=== PATIENT | female | born 1980 | race Caucasian/White ===

== ENCOUNTER → 2017-04-07 | Outpatient (CLI) | payer OTHER ==
--- NOTE | 2017-04-07 10:26 | RADIOLOGY REPORT PS360 ---
ANKLE-LT-3 VIEWS HISTORY: LT ANKLE PAIN no injury pain at the top of foot and ankle Patient Age: 36 years: Female Ordering Physician: IRAM WHITMORE MD TECHNIQUE: 3 views left ankle COMPARISON : None FINDINGS Medial lateral posterior malleolus intact. Ankle mortise intact. Dome of talus intact. The visualized Joint spaces are well-maintained including the talonavicular articulation nicely seen on this view No significant soft tissue swelling findings otherwise evident IMPRESSION: Negative right ankle. No significant findings
== END ==
LOC: RAD 09:31
DX: M25.572 Pain in left ankle and joints of left foot (principal)

== ENCOUNTER 2017-04-28 12:12 | Emergency (ER) | payer OTHER ==
[~2017-04-28] VITALS: Ht 170.2 cm; Wt 60.8 kg
[~2017-04-28 12:12] MED LIST: AURALGAN O10 ML/BOTT OT; BISOPROLOL 5MG T5 MG; CLARITIN REDITAB5 M1; DYMISTA1 SPR; FLONASE 50 MCG16 GM; FLUOXETINE10 MG; KEFLEX 500MG.500 MG PO; LEVAQUIN500 MG PO; SINGULAIR10 MG
--- OUTSIDE RECORDS SUMMARY | 2017-04-28 12:38 | External Medical Summary Rpt | CCD ---
Author Author , MIO Hinojosa MIO Address Unknown Phone [email or web address] Care Team Providers Care Clinical Studies Specialist Name Role Phone Carol MCCARTHY, Unavailable Unavailable Carol MCCARTHY [facility] Unavailable [facility], [facility] ENE HOLLEY JR, Unavailable Unavailable ENE HOLLEY JR, ANTHONY J, Unavailable Unavailable JUSTIN CHAMORRO [id number], Unavailable Unavailable [id number] DADA DEL ROSARIO, Unavailable Unavailable DADA DEL ROSARIO A C, WRIGHT, Unavailable Unavailable Shon Hernadnez Purpose Continuity of Care Document - 01-17-2009 through 2016 Problems Code Diagnosis DOS Provider Status 1101 DERMATOPHYT 05-04-2009 [facility] OSIS OF H PODIATRY NAIL 52834 ONYCHIA AND 05-04-2009 [facility] PARONYCHIA H PODIATRY OF TOE 7295 PAIN IN 05-04-2009 [facility] SOFT H PODIATRY TISSUES OF LIMB 32209 PLANTAR 04-27-2009 [facility] FASCIAL H PODIATRY FIBROMATOSI S V242 ROUTINE 04-14-2009 [facility] FOLLOW-UP AND GYNECOLOGY V251 ENCOUNTER 04-14-2009 [facility] INSERT/[facility] PRADIP IU AND CONTRACEPTI GYNECOLOGY VE DEVICE 4619 ACUTE 04-12-2009 A David BRO SINUSITISMD [facility] UNSPECIFIED 462 ACUTE 04-12-2009 Shon BRO PHARYNGITIS [facility] V2509 OTH GENERAL 03-24-2009 [facility] CNSL&ADVICE AND CONTRACEPT GYNECOLOGY MANAGEMENT 26121 UNSPECIFIED 03-17-2009 Shon BLACKMON MD [facility] 64344 CHEST PAIN 03-17-2009 Shon FENTON MD PSC 650 NORMAL 03-01-2009 [facility] DELIV[facility] ANESTHESIA GROUP [facility] 13373 OTHER 03-01-2009 [facility] DE RESPIRATORY RADIOLOGY PROBLEMS AFTER V270 OUTCOME OF 03-01-2009 [facility] DELIVERY OBSTETRICS SINGLE AND LIVEBORN GYNECOLOGY 92330 ABN FETL 02-28-2009 [facility] DEL[facility] W/WO ANTPRTM COND 82599 OTH&UNS CRD 02-28-2009 [facility] COMP L&D DELIV 98961 POST TERM 02-27-2009 [facility] ANTEPARTUM AND COND/COMPLI GYNECOLOGY CATION V2389 SUPERVISION 02-27-2009 [facility] OF OTHER OBSTETRICS HIGH-RISK AND GYNECOLOGY V220 SUPERVISION 02-21-2009 [facility] OF NORMAL OBSTETRICS FIRST AND GYNECOLOGY 55235 DECR 02-20-2009 [facility]S [facility] ANTPRTM COND/COMP Medications Na ND Rx Da Fi Fi Am Da Di Ph RX Ph St me C No te ll ll ou ys ag ar # ys at rm s nt no ma ic us Or Da si cy ia de te s n re d NE 24 10 11 00 10 15 RI 80 RO Ac OM 20 -2 -0 .0 TE 63 DE ti YC 80 9- 5- 00 52 S ve IN 63 20 20 AI -P 11 09 09 D OL 0 PH AN YM AR S YX M IN #3 -H 93 C [address] AC 00 10 11 00 10 1 RI 80 RO Ac ET 09 -2 -0 .0 TE 63 DE ti AM 30 9- 5- 00 51 S ve IN 15 20 20 AI OP 01 09 09 D HE 0 PH AN N- AR S CO M D #3 #3 93 8 TA BL ET EC 45 10 11 00 30 15 RI 80 RO Ac ON 80 -2 -0 .0 TE 63 DE ti AZ 20 9- 5- 00 53 S ve OL 46 20 20 AI E 61 09 09 D NI 1 PH AN TR AR S AT M E #3 1% 93 8 CR EA M 00 10 10 00 24 24 RI 80 WR Ac 09 -1 -2 .0 TE 38 IG ti 51 2- 2- 00 10 HT ve 29 20 20 AI 00 09 09 D AR 6 PH DY AR C M #3 93 8 LO 00 10 10 00 30 30 RI 80 RI Ac RA 78 -0 -2 .0 TE 31 SH ti TA 15 7- 2- 00 79 ER ve DI 07 20 20 AI NE 70 09 09 D RI 1 PH CH 10 AR AR M D MG #3 93 TA 8 BL ET Results Labs Lab Lab Date Result Refere Interp Status Commen Order Detail nces retati t Range on CHLAMYDIA AND GONORRHEA TESTING (05-21-2011 15:12) Chlamyd NEGATIV complet ia 011 E ed trachom 15:12 atis rRNA [Presen ce] in Unspeci fied specime n by Probe & target amplifi cation method Neisser NEGATIV complet ia 011 E ed gonorrh 15:12 oeae rRNA [Presen ce] in Unspeci fied specime n by Probe & target amplifi cation method CHLAMYDIA AND GONORRHEA TESTING (05-21-2011 15:12) COLLECT NA complet OR 011 ed 15:12 ETHNICI WHITE, complet TY 011 NON-HIS ed 15:12 PANIC KIT 08-06-11 complet EXPIRAT 011 ed ION 15:12 DATE SYMPTOM NO complet S 011 ed 15:12 REASON REVISIT complet FOR 011 /ANNUAL ed REQUEST 15:12 FAMILY PLANNIN G VISIT SPECIME FEMALE complet N 011 ENDOCER ed SOURCE 15:12 VICAL PREGNAN NO complet T 011 ed 15:12 CHART NA complet NUMBER 011 ed 15:12 Chlamyd Pending complet ia 011 ed trachom 15:12 atis rRNA [Presen ce] in Unspeci fied specime n by Probe & target amplifi cation method Neisser Pending complet ia 011 ed gonorrh 15:12 oeae rRNA [Presen ce] in Unspeci fied specime n by Probe & target amplifi cation method Procedures Procedure DOS Code Location Performer Comment AVULSION 82217 [facility] RODES, NAIL 9 LTH DADA S PLATE PODIATRY PARTIAL/C OMPLETE SIMPLE 1 INSERTION 47509 [facility] 9 N JR, INTRAUTER OBSTETRIC ENE INE S AND DEVICE GYNECOLOG IUD Y LEVONORGE J7302 [place] H[facility] STREL-RLS 9 N JR, E OBSTETRIC ENE INTRAUTER S AND N GYNECOLOG CNTRACPT Y 52 MG IADNA 64491 A C BRO, Shon BRO MD C CCUS PSC GROUP A QUANTIFIC ATION OTHER 7359 [facility] MANUALLY 9 N N ASSISTED [facility] DELIVERY [facility] OTHER 7309 [facility] ARTIFICIA 9 N N L RUPTURE [facility] NEURAXIAL [address] [place] PEDRO PABLO, LABOR 9 ANESTHESI JUSTIN J ANALG/ANE A GROUP S PLND PSC VAGINAL DELIVERY VAGINAL 41053 [facility] LEYDI DELIVERY 9 N JR, ONLY OBSTETRIC ENE W/POSTPAR S AND ROLO CARE GYNECOLOG Y RADIOLOGI 16320 [facility] David HANKINS 9 RADIOLOGY J EXAMINATI ON CHEST SINGLE VIEW FRONTAL OTHER 731 [facility] SURGICAL 9 N N INDUCTION [facility] [address] [facility] NONSTRESS 9 N N TEST [facility] Encounters Encounter Start End Date Code Location Performer Type Date OFFICE 01768 RIMA PURCELL 9 9 [facility] DADA S ION PODIATRY NEW/ESTAB PATIENT 40 MIN OFFICE 87576 Shon CHEN OUTPATIKATHERINE 9 9 DIEUDONNE Hernandez T VISIT PSC 15 MINUTES OFFICE 59265 [facility] OUTPATIKATHERINE 9 9 N JR, T VISIT OBSTETRIC ENE 10 S AND MINUTES GYNECOLOG Y OFFICE 05536 Shon CHEN OUTPATIEN 9 9 DIEUDONNE Hernandez T VISIT PSC 15 MINUTES HOSPITAL [facility] 9 9 N INPATIENT [facility] OFFICE 77271 [place] OUTPATIEN 9 9 N JR, T VISIT OBSTETRIC ENE 15 S AND MINUTES GYNECOLOG Y OFFICE 45234 [place] [facility] OUTPATIEN 9 9 N JR, T VISIT OBSTETRIC ENE 10 S AND MINUTES GYNECOLOG Y [facility] [place] [address] 9 N OUTPATIEN [facility] OFFICE 04673 [place] LE[facility]DI OUTPATIEN 9 9 N JR, T VISIT OBSTETRIC ENE 10 S AND MINUTES GYNECOLOG Y OFFICE 92726 BILLYWILLAMLazara COONE[place]DI OUTPATIEN 9 9 N JR, T VISIT OBSTETRIC ENE 10 S AND MINUTES GYNECOLOG Y OFFICE 66818 [place] LEYDI OUTPATIEN 9 9 N JR, T VISIT OBSTETRIC ENE 10 S AND MINUTES GYNECOLOG Y OFFICE 10859 BILLYWILLAMLazara COONEYLEYDI OUTPATIEN 9 9 N JR, T VISIT OBSTETRIC ENE 10 S AND MINUTES GYNECOLOG Y
--- OUTSIDE RECORDS SUMMARY | 2017-04-28 12:38 | External Medical Summary Rpt | CCD ---
Author Author , MIO Hinojosa MIO Address Unknown Phone [email or web address] Care Team Providers Care Manager Freelance Name Role Phone Carol MCCARTHY, Unavailable Unavailable Carol MCCARTHY [facility] Unavailable [facility], [facility] ENE HOLLEY JR, Unavailable Unavailable ENE HOLLEY JR, ANTHONY J, Unavailable Unavailable JUSTIN CHAMORRO [id number], Unavailable Unavailable [facility] DADA DEL ROSARIO, Unavailable Unavailable DADA DEL ROSARIO A C, WRIGHT, Unavailable Unavailable Shon Hernandez Purpose Continuity of Care Document - 01-17-2009 through 2016 Problems Code Diagnosis DOS Provider Status 1101 DERMATOPHYT 05-04-2009 [facility] OSIS OF H PODIATRY NAIL 67382 ONYCHIA AND 05-04-2009 [facility] PARONYCHIA H PODIATRY OF TOE 7295 PAIN IN 05-04-2009 [facility] SOFT H PODIATRY TISSUES OF LIMB 97152 PLANTAR 04-27-2009 [facility] FASCIAL H PODIATRY FIBROMATOSI S V242 ROUTINE 04-14-2009 [facility] FOLLOW-UP AND GYNECOLOGY V251 ENCOUNTER 04-14-2009 [facility] INSERT/[facility] PRADIP IU AND CONTRACEPTI GYNECOLOGY VE DEVICE 4619 ACUTE 04-12-2009 A David BRO SINUSITISMD [facility] UNSPECIFIED 462 ACUTE 04-12-2009 Shon BRO PHARYNGITIS [facility] V2509 OTH GENERAL 03-24-2009 [facility] CNSL&ADVICE AND CONTRACEPT GYNECOLOGY MANAGEMENT 30606 UNSPECIFIED 03-17-2009 Shon BRO OTAROMULO MATOS PSC 62093 CHEST PAIN 03-17-2009 Shon FENTON MD PSC 650 NORMAL 03-01-2009 [place] DELIVERY ANESTHESIA GROUP PSC 41049 OTHER 03-01-2009 [facility] [place] RESPIRATORY RADIOLOGY PROBLEMS AFTER V270 OUTCOME OF 03-01-2009 [facility] DELIVERY OBSTETRICS SINGLE AND LIVEBORN GYNECOLOGY 53132 ABN FETL 02-28-2009 [facility] HRT COMMUNITY [facility] DELIV W/WO ANTPRTM COND 92945 OTH&UNS CRD 02-28-2009 [facility] COMP L&D DELIV 25547 POST TERM 02-27-2009 [facility] ANTEPARTUM AND COND/COMPLI GYNECOLOGY CATION V2389 SUPERVISION 02-27-2009 [facility] OF OTHER OBSTETRICS HIGH-RISK AND GYNECOLOGY V220 SUPERVISION 02-21-2009 [facility] OF NORMAL OBSTETRICS FIRST AND GYNECOLOGY 93005 DECR 02-20-2009 [facility]NTS [facility] ANTPRTM COND/COMP Medications Na ND Rx Da [...] MG #3 93 TA 8 BL ET Procedures Procedure DOS Code Location Performer Comment AVULSION 49699 SCOTT DEL ROSARIO, NAIL 9 [facility] DADA S PLATE PODIATRY PARTIAL/C OMPLETE SIMPLE 1 INSERTION 16830 [facility] LEYDI 9 N JR, INTRAUTER OBSTETRIC ENE INE S AND DEVICE GYNECOLOG IUD Y LEVONORGE J7302 [facility] LEYDI STREL-RLS 9 N JR, E OBSTETRIC ENE INTRAUTER S AND N GYNECOLOG CNTRACPT Y 52 MG IADNA 77484 Shon CHEN STREPTOCO 9 DIEUDONNE Hernandez CCUS PSC GROUP A QUANTIFIC ATION OTHER 7359 [facility] MANUALLY 9 N N ASSISTED [facility] OTHER 7309 [facility] ARTIFICIA 9 N N L RUPTURE [facility] NEURAXIAL 26354 MERLYN CHAMORRO, LABOR 9 ANESTHESI JUSTIN J ANALG/ANE A GROUP S PLND PSC VAGINAL DELIVERY RADIOLOGI 40426 [facility] David HANKINS 9 RADIOLOGY J EXAMINATI ON CHEST SINGLE VIEW FRONTAL VAGINAL 44947 [facility] LEYDI DELIVERY 9 N JR, ONLY OBSTETRIC ENE W/POSTPAR S AND ROLO CARE GYNECOLOG Y OTHER 731 [facility] SURGICAL 9 N N INDUCTION [facility] [address] [facility] NONSTRESS 9 N N TEST [facility] Encounters Encounter Start End Date Code Location Performer Type Date OFFICE 92165 REEMA PURCELLAT 9 9 [facility] DADA S ION PODIATRY NEW/ESTAB PATIENT 40 MIN OFFICE 41582 Shon CHEN OUTPATIEN 9 9 DIEUDONNE Hernandez T VISIT PSC 15 MINUTES OFFICE 07880 BILLYLazara HOLLEY OUTPATIEN 9 9 N JR, T VISIT OBSTETRIC ENE 10 S AND MINUTES GYNECOLOG Y OFFICE 17410 Shon CHEN OUTPATIEN 9 9 DIEUDONNE Hernandez T VISIT PSC 15 MINUTES HOSPITAL [facility] - 9 9 N [facility] OFFICE 22138 [place] [facility] OUTPATIEN 9 9 N JR, T VISIT OBSTETRIC ENE 15 S AND MINUTES GYNECOLOG Y OFFICE 24509 [place] OUTPATIEN 9 9 N JR, T VISIT OBSTETRIC ENE 10 S AND MINUTES GYNECOLOG Y HOSPITAL [facility] - 9 9 N [facility] 33589 [place] H[place] OUTPATIEN 9 9 N JR, T VISIT OBSTETRIC ENE 10 S AND MINUTES GYNECOLOG Y OFFICE 79456 [place] OUTPATIEN 9 9 N JR, T VISIT OBSTETRIC ENE 10 S AND MINUTES GYNECOLOG Y OFFICE 06272 [place] OUTPATIEN 9 9 N JR, T VISIT OBSTETRIC ENE 10 S AND MINUTES GYNECOLOG Y OFFICE 92851 [place] HOL[place] OUTPATIEN 9 9 N JR, T VISIT OBSTETRIC ENE 10 S AND MINUTES GYNECOLOG Y
--- OUTSIDE RECORDS SUMMARY | 2017-04-28 12:38 | External Medical Summary Rpt | CCD ---
Author Author , MIO Hinojosa MIO Address Unknown Phone [email or web address] Care Team Providers Care Summer Associate Name Role Phone Carol MCCARTHY, Unavailable Unavailable Carol [facility]CCARTHY [facility] Unavailable [facility], [facility] ENE HOLLEY JR, Unavailable Unavailable ENE HOLLEY JR, ANTHONY J, Unavailable Unavailable JUSTIN CHAMORRO [id number], Unavailable Unavailable [facility] DADA DEL ROSARIO, Unavailable Unavailable DADA DEL ROSARIO A C, WRIGHT, Unavailable Unavailable Shon Hernandez Purpose Continuity of Care Document - 01-17-2009 through 2016 Problems Code Diagnosis DOS Provider Status 1101 DERMATOPHYT 05-04-2009 [facility] OSIS OF H PODIATRY NAIL 95675 ONYCHIA AND 05-04-2009 [facility] PARONYCHIA H PODIATRY OF TOE 7295 PAIN IN 05-04-2009 [facility] SOFT H PODIATRY TISSUES OF LIMB 76181 PLANTAR 04-27-2009 [facility] FASCIAL H PODIATRY FIBROMATOSI S V242 ROUTINE 04-14-2009 [facility] FOLLOW-UP AND GYNECOLOGY V251 ENCOUNTER 04-14-2009 [facility] INSERT/[facility] PRADIP IU AND CONTRACEPTI GYNECOLOGY VE DEVICE 4619 ACUTE 04-12-2009 A David BRO SINUSITISMD PSC UNSPECIFIED 462 ACUTE 04-12-2009 Shon BRO PHARYNGITIS [facility] V2509 OTH GENERAL 03-24-2009 [facility] CNSL&ADVICE AND CONTRACEPT GYNECOLOGY MANAGEMENT 34466 UNSPECIFIED 03-17-2009 Shon BRO OTAROMULO MATOS PSC 74013 CHEST PAIN 03-17-2009 Shon FENTON MD PSC 650 NORMAL 03-01-2009 [place] DELIVERY ANESTHESIA GROUP PSC 49848 OTHER 03-01-2009 [facility] [place] RESPIRATORY RADIOLOGY PROBLEMS AFTER V270 OUTCOME OF 03-01-2009 [facility] DELIVERY OBSTETRICS SINGLE AND LIVEBORN GYNECOLOGY 05959 ABN FETL 02-28-2009 [facility] HRT COMM[facility]ITY [facility] DELIV W/WO ANTPRTM COND 85984 OTH&UNS CRD 02-28-2009 [facility] COMP L&D DELIV 71076 POST TERM 02-27-2009 [facility] ANTEPARTUM AND COND/COMPLI GYNECOLOGY CATION V2389 SUPERVISION 02-27-2009 [facility] OF OTHER OBSTETRICS HIGH-RISK AND GYNECOLOGY V220 SUPERVISION 02-21-2009 [facility] OF NORMAL OBSTETRICS FIRST AND GYNECOLOGY 62600 DECR 02-20-2009 [facility] M[facility]NTS [facility] ANTPRTM COND/COMP Medications Na ND [...] Procedure DOS Code Location Performer Comment AVULSION 42749 SCOTT DEL ROSARIO, NAIL 9 [facility] DADA S PLATE PODIATRY PARTIAL/C OMPLETE SIMPLE 1 INSERTION 19048 [facility] LEYDI 9 N JR, INTRAUTER OBSTETRIC ENE INE S AND DEVICE GYNECOLOG IUD Y LEVONORGE J7302 [facility] LEYDI STREL-RLS 9 N JR, E OBSTETRIC ENE INTRAUTER S AND N GYNECOLOG CNTRACPT Y 52 MG IADNA 25384 Shon CHEN STREPTOCO 9 DIEUDONNE Hernandez CCUS PSC GROUP A QUANTIFIC ATION OTHER 7359 [facility] MANUALLY 9 N N ASSISTED [facility] OTHER 7309 [facility] ARTIFICIA 9 N N L RUPTURE [facility] NEURAXIAL 93097 MERLYN CHAMORRO, LABOR 9 ANESTHESI JUSTIN J ANALG/ANE A GROUP S PLND PSC VAGINAL DELIVERY RADIOLOGI 54614 [facility] David HANKINS 9 RADIOLOGY J EXAMINATI ON CHEST SINGLE VIEW FRONTAL VAGINAL 96727 [facility] LEYDI DELIVERY 9 N JR, ONLY OBSTETRIC ENE W/POSTPAR S AND ROLO CARE GYNECOLOG Y OTHER 731 [facility] SURGICAL 9 N N INDUCTION [facility] 55002 [facility] NONSTRESS 9 N N TEST [facility] Encounters Encounter Start End Date Code Location Performer Type Date OFFICE 38862 REEMA PURCELLAT 9 9 [facility] DADA S ION PODIATRY NEW/ESTAB PATIENT 40 MIN OFFICE 09438 Shon CHEN OUTPATIEN 9 9 DIEUDONNE Hernandez T VISIT PSC 15 MINUTES OFFICE 00125 BILLYLazara HOLLEY OUTPATIEN 9 9 N JR, T VISIT OBSTETRIC ENE 10 S AND MINUTES GYNECOLOG Y OFFICE 73545 Shon CHEN OUTPATIEN 9 9 DIEUDONNE Hernandez T VISIT PSC 15 MINUTES HOSPITAL [facility] - 9 9 N [facility] OFFICE 56144 [place] HOL[place] OUTPATIEN 9 9 N JR, T VISIT OBSTETRIC ENE 15 S AND MINUTES GYNECOLOG Y OFFICE 18464 [place] H[place] OUTPATIEN 9 9 N JR, T VISIT OBSTETRIC ENE 10 S AND MINUTES GYNECOLOG Y HOSPITAL [facility] - 9 9 N [facility] OFF[facility] 12240 [place] HOLLEY OUTPATIEN 9 9 N JR, T VISIT OBSTETRIC ENE 10 S AND MINUTES GYNECOLOG Y OFFICE 39880 [place] H[place] OUTPATIEN 9 9 N JR, T VISIT OBSTETRIC ENE 10 S AND MINUTES GYNECOLOG Y OFFICE 78604 [place] HOL[place] OUTPATIEN 9 9 N JR, T VISIT OBSTETRIC ENE 10 S AND MINUTES GYNECOLOG Y OFFICE 38745 [place] HOL[place] OUTPATIEN 9 9 N JR, T VISIT OBSTETRIC ENE 10 S AND MINUTES GYNECOLOG Y
--- OUTSIDE RECORDS SUMMARY | 2017-04-28 12:38 | External Medical Summary Rpt | CCD ---
Author Author , MIO Hinojosa MIO Address Unknown Phone [email or web address] Care Team Providers Care Sales Representative Livestock Name Role Phone Carol MCCARTHY, Unavailable Unavailable Carol MCCARTHY [facility] Unavailable [facility], [facility] ENE HOLLEY JR, Unavailable Unavailable ENE [...] 05-04-2009 [facility] OSIS OF H PODIATRY NAIL 89206 ONYCHIA AND 05-04-2009 [facility] PARONYCHIA H PODIATRY OF TOE 7295 PAIN IN 05-04-2009 [facility] SOFT H PODIATRY TISSUES OF LIMB 68403 PLANTAR 04-27-2009 [facility] FASCIAL H PODIATRY FIBROMATOSI S V242 ROUTINE 04-14-2009 [facility] FOLLOW-UP AND GYNECOLOGY V251 ENCOUNTER 04-14-2009 [facility] INSERT/[facility] PRADIP IU AND CONTRACEPTI GYNECOLOGY VE DEVICE 4619 ACUTE 04-12-2009 A David BRO SINUSITISMD [facility] UNSPECIFIED 462 ACUTE 04-12-2009 Shon BRO PHARYNGITIS [facility] V2509 OTH GENERAL 03-24-2009 [facility] CNSL&ADVICE AND CONTRACEPT GYNECOLOGY MANAGEMENT 66018 UNSPECIFIED 03-17-2009 Shon BLACKMON MD [facility] 91589 CHEST PAIN 03-17-2009 Shon FENTON MD PSC 650 NORMAL 03-01-2009 [facility] DELIVERY ANESTHESIA GROUP [facility] 80741 OTHER 03-01-2009 [facility] ID RESPIRATORY RADIOLOGY PROBLEMS AFTER V270 OUTCOME OF 03-01-2009 [facility] DELIVERY OBSTETRICS SINGLE AND LIVEBORN GYNECOLOGY 00038 ABN FETL 02-28-2009 [facility] HRT [facility] DELIV W/WO ANTPRTM COND 87066 OTH&UNS CRD 02-28-2009 [facility] W[facility]O [facility] COMP L&D DELIV 81223 POST TERM 02-27-2009 [facility] ANTEPARTUM AND COND/COMPLI GYNECOLOGY CATION V2389 SUPERVISION 02-27-2009 [facility] OF OTHER OBSTETRICS HIGH-RISK AND GYNECOLOGY V220 SUPERVISION 02-21-2009 [facility] OF NORMAL OBSTETRICS FIRST AND GYNECOLOGY 01451 DECR 02-20-2009 [facility]NTS [facility] ANTPRTM COND/COMP Medications Na ND Rx [...] Procedure DOS Code Location Performer Comment AVULSION 99151 COMMONWEA RODES, NAIL 9 [facility] DADA S PLATE PODIATRY PARTIAL/C OMPLETE SIMPLE 1 INSERTION 65307 [place] H[facility] 9 N JR, INTRAUTER OBSTETRIC ENE INE S AND DEVICE GYNECOLOG IUD Y LEVONORGE J7302 [place] HOLLEY STREL-RLS 9 N JR, E OBSTETRIC ENE INTRAUTER S AND N GYNECOLOG CNTRACPT Y 52 MG IADNA 21096 A C BRO, Shon BRO MD C CCUS PSC GROUP A QUANTIFIC ATION OTHER 7359 [facility] MANUALLY 9 N N ASSISTED [facility] DELIVERY [facility] OTHER 7309 [facility] ARTIFICIA 9 N N L RUPTURE [facility] NEURAXIAL [address]368 [place] PEDRO PABLO, LABOR 9 ANESTHESI JUSTIN J ANALG/ANE A GROUP S PLND PSC VAGINAL DELIVERY VAGINAL 14517 [facility] LEYDI DELIVERY 9 N JR, ONLY OBSTETRIC ENE W/POSTPAR S AND ROLO CARE GYNECOLOG Y RADIOLOGI 79507 [facility] David HANKINS 9 RADIOLOGY J EXAMINATI ON CHEST SINGLE VIEW FRONTAL OTHER 731 [facility] SURGICAL 9 N N INDUCTION [facility] 29452 [facility] NONSTRESS 9 N N TEST [facility] Encounters Encounter Start End Date Code Location Performer Type Date OFFICE 41966 RIMA PURCELL 9 9 [facility] DADA S ION PODIATRY NEW/ESTAB PATIENT 40 MIN OFFICE 72773 Shon CHEN OUTPATIKATHERINE 9 9 DIEUDONNE Hernandez T VISIT PSC 15 MINUTES OFFICE 68953 [facility] OUTPATIKATHERINE 9 9 N JR, T VISIT OBSTETRIC ENE 10 S AND MINUTES GYNECOLOG Y OFFICE 75753 Shon CHEN OUTPATIEN 9 9 DIEUDONNE Hernandez T VISIT PSC 15 MINUTES HOSPITAL [facility] 9 9 N INPATIENT [facility] OFFICE 64852 [place] HOLLEY OUTPATIEN 9 9 N JR, T VISIT OBSTETRIC ENE 15 S AND MINUTES GYNECOLOG Y OFFICE 79255 [place] HOL[place] OUTPATIEN 9 9 N JR, T VISIT OBSTETRIC ENE 10 S AND MINUTES GYNECOLOG Y HOSPITAL [place] [address] 9 N OUTPATIEN [facility] OFFICE 97254 [place] LEYDI OUTPATIEN 9 9 N JR, T VISIT OBSTETRIC ENE 10 S AND MINUTES GYNECOLOG Y OFFICE 73809 [place] OUTPATIEN 9 9 N JR, T VISIT OBSTETRIC ENE 10 S AND MINUTES GYNECOLOG Y OFFICE 79960 [place] LEYDI OUTPATIEN 9 9 N JR, T VISIT OBSTETRIC ENE 10 S AND MINUTES GYNECOLOG Y OFFICE 33101 [place] [facility] OUTPATIEN 9 9 N JR, T VISIT OBSTETRIC ENE 10 S AND MINUTES GYNECOLOG Y
--- OUTSIDE RECORDS SUMMARY | 2017-04-28 12:39 | External Medical Summary Rpt | CCD ---
Demographics Preferred Language Faroese Marital Status Unknown Religion Affiliation Unknown Race Unknown Ethnic Group Unknown Author Author , MIO LIEBERMAN Address Unknown Phone Immunization No patient found.
--- OUTSIDE RECORDS SUMMARY | 2017-04-28 12:39 | External Medical Summary Rpt ---
Author Author HUNTERMASSIEL Ramos, [employer] Organization [employer] Address Unknown Phone Unavailable Results Chlamydia/GC Amplification Observa Value Referen Units Interpr Notes Date tion ce etation Range Chlamyd Negativ Negativ No No No Feb 26 ia e e informa informa informa 2017 trachom tion in tion in tion in 9:58 AM atis source source source rRNA data data data [Presen ce] in Unspeci fied specime n by Probe & target amplifi cation method Neisser Negativ Negativ No No Perform Feb 26 ia e e informa informa ed at: 2017 gonorrh tion in tion in =G - 9:58 AM oeae source source [facility] rRNA data data [Presen Librado ce] in [id number] Unspeci [place] fied [place], specime [place], [place] Probe & target [id number] 38Lab amplifi Directo cation r: method Elizabeth Zambrano MD, Phone: [phone] Comprehensive metabolic 2000 panel in Serum or Plasma Observa Value Referen Units Interpr Notes Date tion ce etation Range Albumin/G 1.1 - 1.8 No Normal No Clifford 2 lobulin informati informati 2017 8:14 [Mass on in on in AM ratio] in source source Serum or data data Plasma Albumin 3.4 - 5.0 gm/dL Normal No Clifford 2 [Mass/vol informati 2017 8:14 ume] in on in AM Serum or source Plasma data Alkaline 46 - 116 U/L Normal No Clifford 2 phosphata informati 2017 8:14 se on in AM [Enzymati source c data activity/ volume] in Serum or Plasma Bilirubin 0.2 - 1.0 mg/dL Normal No Clifford 2 .total informati 2017 8:14 [Mass/vol on in AM ume] in source Serum or data Plasma Urea 7 - 18 mg/dL Normal No Clifford 2 nitrogen informati 2017 8:14 [Mass/vol on in AM ume] in source Serum or data Plasma Calcium 8.5 - mg/dL Normal No Clifford 2 [Mass/vol 10.1 informati 2017 8:14 ume] in on in AM Serum or source Plasma data Chloride 98 - 107 mmoL/L Normal No Clifford 2 [Moles/vo informati 2017 8:14 lume] in on in AM Serum or source Plasma data Carbon 21.0 - mmoL/L Normal No Clifford 2 dioxide, 32.0 informati 2017 8:14 total on in AM [Moles/vo source lume] in data Serum or Plasma Creatinin 0.55 - mg/dL Normal No Clifford 2 e 1.02 informati 2017 8:14 [Mass/vol on in AM ume] in source Serum or data Plasma Estimated 59- ML/MIN No REFERENCE Clifford 2 informati RANGE: 2017 8:14 glomerula on in >60 AM r source ML/MIN/1. filtratio data 73 SQUARE n rate METERSIf (GF this patient is -A merican, then multiply theresult by 1.210. Globulin 1.3 - 3.2 gm/dL High No Clifford 2 [Mass/vol informati 2017 8:14 ume] in on in AM Serum source data Glucose 74 - 106 mg/dL Normal No Clifford 2 [Mass/vol informati 2017 8:14 ume] in on in AM Serum or source Plasma data Potassium 3.5 - 5.1 mmoL/L Normal No Clifford 2 informati 2017 8:14 [Moles/vo on in AM lume] in source Serum or data Plasma Sodium 136 - 145 mmoL/L Normal No Clifford 2 [Moles/vo informati 2017 8:14 lume] in on in AM Serum or source Plasma data Aspartate 15 - 37 U/L Low No Clifford 2 informati 2017 8:14 aminotran on in AM sferase source [Enzymati data c activity/ volume] in Serum or Plasma Alanine 12 - 78 U/L Normal No Clifford 2 aminotran informati 2016 8:14 sferase on in AM [Enzymati source c data activity/ volume] in Serum or Plasma Protein 6.4 - 8.2 gm/dL Normal No Clifford 2 [Mass/vol informati 2017 8:14 ume] in on in AM Serum or source Plasma data Lipid 1996 panel in Serum or Plasma Observa Value Referen Units Interpr Notes Date tion ce etation Range Cholester < 200 mg/dL No No Clifford 2 ol informati informati 2017 8:14 [Moles/vo on in on in AM lume] in source source Unspecifi data data ed specimen Cholester 40 - 60 MG/DL Normal No Dec 2 ol in HDL informati 2016 8:14 on in AM [Mass/vol source ume] in data Serum or Plasma Cholester 0 - 130 mg/dL Normal No Dec 2 ol in LDL informati 2016 8:14 on in AM [Mass/vol source ume] in data Serum or Plasma by calculati on Triglycer 30 - 200 mg/dL Normal No Dec 2 lynnette informati 2016 8:14 [Moles/vo on in AM lume] in source Serum or data Plasma Cholester 0 - 40 No Normal No Clifford 2 ol in informati informati 2017 8:14 VLDL on in on in AM [Mass/vol source source ume] in data data Serum or Plasma Thyrotropin [Units/volume] in Serum or Plasma Observa Value Referen Units Interpr Notes Date tion ce etation Range Thyrotrop 0.358 - uIU/ml Normal No Dec 2 in 3.740 informati 2016 8:14 [Units/vo on in AM lume] in source Serum or data Plasma CBC W Auto Differential panel in Blood Observa Value Referen Units Interpr Notes Date tion ce etation Range Basophils 0 - 0.2 K/MM3 Normal No Dec 2 informati 2016 8:14 [#/volume on in AM ] in source Blood by data Automated count Basophils 0.1 - 2.0 % Normal No Clifford 2 /100 informati 2016 8:14 leukocyte on in AM s in source Blood by data Automated count Eosinophi 0.0 - 0.4 K/mm3 Normal No Dec 2 ls informati 2016 8:14 [#/volume on in AM ] in source Blood by data Automated count Eosinophi 0.1 - % Normal No Dec 2 ls/100 12.0 informati 2016 8:14 leukocyte on in AM s in source Blood by data Automated count Granulocy 1.8 - 7.8 K/mm3 Normal No Dec 2 renea informati 2016 8:14 [#/volume on in AM ] in source Blood by data Automated count Granulocy 37.0 - % Normal No Dec 2 renea/100 80.0 informati 2016 8:14 leukocyte on in AM s in source Blood by data Automated count Hematocri 37.0 - % Normal No Dec 2 t [Volume 47.0 informati 2017 8:14 on in AM Fraction] source of Blood data Hemoglobi 12.2 - g/dL Normal No Clifford 2 n 16.2 informati 2017 8:14 [Mass/vol on in AM ume] in source Blood data Lymphocyt 0.7 - 4.5 K/mm3 Normal No Clifford 2 es informati 2017 8:14 [#/volume on in AM ] in source Unspecifi data ed specimen by Automated count Lymphocyt 10 - 50.0 % Normal No Clifford 2 es informati 2017 8:14 [#/volume on in AM ] in source Unspecifi data ed specimen by Automated count Erythrocy 27 - 31.2 pg High No Dec 2 te mean informati 2017 8:14 corpuscul on in AM ar source hemoglobi data n [Entitic mass] Erythrocy 31.8 - g/dl Normal No Dec 2 te mean 35.4 informati 2016 8:14 corpuscul on in AM ar source hemoglobi data n concentra tion [Mass/vol ume] by Automated count Erythrocy 82.2 - fl Normal No Dec 2 te mean 97.8 informati 2017 8:14 corpuscul on in AM ar volume source [Entitic data volume] by Automated count Monocytes 0.1 - 1.0 K/mm3 Normal No Clifford 2 informati 2017 8:14 [#/volume on in AM ] in source Blood by data Automated count Monocytes 1.7 - 9.3 % Normal No Clifford 2 /100 informati 2017 8:14 leukocyte on in AM s in source Blood by data Automated count Platelet 7.4 - fl Low No Dec 2 mean 10.4 informati 2017 8:14 volume on in AM [Entitic source volume] data in Blood by Automated count Platelets 142 - 424 K/mm3 Normal No Clifford 2 informati 2017 8:14 [#/volume on in AM ] in source Blood data Erythrocy 4.2 - 5.4 M/mm3 Normal No Clifford 2 renea informati 2017 8:14 [#/volume on in AM ] in source Amniotic data fluid Erythrocy 11.5 - % Normal No Clifford 2 te 17.5 informati 2017 8:14 distribut on in AM ion width source [Entitic data volume] by Automated count Leukocyte 4.8 - K/MM3 Normal No Clifford 2 s 10.8 informati 2017 8:14 [#/volume on in AM ] in source Blood data CHLAMYDIA AND GONORRHEA TESTING Observa Value Referen Units Interpr Notes Date tion ce etation Range COLLECT NA No No No No May 21 OR informa informa informa informa 2010 tion in tion in tion in tion in 3:12 PM source source source source data data data data ETHNICI WHITE, No No No No May 21 TY NON-HIS informa informa informa informa 2010 PANIC tion in tion in tion in tion in 3:12 PM source source source source data data data data KIT 08-06-11 No No No No May 21 EXPIRAT informa informa informa informa 2011 ION tion in tion in tion in tion in 3:12 PM DATE source source source source data data data data SYMPTOM NO No No No No May 21 S informa informa informa informa 2010 tion in tion in tion in tion in 3:12 PM source source source source data data data data REASON REVISIT No No No No May 21 FOR /ANNUAL informa informa informa informa 2011 REQUEST FAMILY tion in tion in tion in tion in 3:12 PM source source source source PLANNIN data data data data G VISIT SPECIME FEMALE No No No No May 21 N ENDOCER informa informa informa informa 2011 SOURCE VICAL tion in tion in tion in tion in 3:12 PM source source source source data data data data PREGNAN NO No No No No May 21 T informa informa informa informa 2010 tion in tion in tion in tion in 3:12 PM source source source source data data data data CHART NA No No No No May 21 NUMBER informa informa informa informa 2010 tion in tion in tion in tion in 3:12 PM source source source source data data data data Chlamyd NEGATIV No No No NEGATIV May 21 ia E informa informa informa E 2011 trachom tion in tion in tion in RESULT= 3:12 PM atis source source source WITHIN rRNA data data data NORMAL [Presen ce] in LIMITSP Unspeci OSITIVE fied specime RESULT= n by Probe & ABNORMA target LEQUIVO SLIME amplifi RESULT= cation method INDETER MINATEU NSATISF ACTORY RESULT= INVALID Neisser NEGATIV No No No NEGATIV May 21 ia E informa informa informa E 2011 gonorrh tion in tion in tion in RESULT= 3:12 PM oeae source source source WITHIN rRNA data data data NORMAL [Presen ce] in LIMITSP Unspeci OSITIVE fied specime RESULT= n by Probe & ABNORMA target LEQUIVO SLIME amplifi RESULT= cation method INDETER MINATEU NSATISF ACTORY RESULT= INVALID EFFECTI VE NOVEMBE R [id number]: THE APTIMA COMBO 2 NUCLEIC ACIDAMP LIFICAT ION ASSAY IS NOT INTENDE D FOR THE EVALUAT ION OFSUSPE CTED SEXUAL ABUSE OR FOR OTHER MEDICO- LEGAL INDICAT IONS.FA LSE POSITIV E RESULTS ARE POSSIBL E.\.br\ This report contain s patient informa tion that must be protect ed in accorda nce with the Health Insuran ce Portabi lity and Account ability Act. CHLAMYDIA AND GONORRHEA TESTING Observa Value Referen Units Interpr Notes Date tion ce etation Range COLLECT NA No No No No May 21 OR informa informa informa informa 2010 tion in tion in tion in tion in 3:12 PM source source source source data data data data ETHNICI WHITE, No No No No May 21 TY NON-HIS informa informa informa informa 2010 PANIC tion in tion in tion in tion in 3:12 PM source source source source data data data data KIT 1-31-12 No No No No May 21 EXPIRAT informa informa informa informa 2011 ION tion in tion in tion in tion in 3:12 PM DATE source source source source data data data data SYMPTOM NO No No No No May 21 S informa informa informa informa 2010 tion in tion in tion in tion in 3:12 PM source source source source data data data data REASON REVISIT No No No No May 21 FOR /ANNUAL informa informa informa informa 2010 REQUEST FAMILY tion in tion in tion in tion in 3:12 PM source source source source PLANNIN data data data data G VISIT SPECIME FEMALE No No No No May 21 N ENDOCER informa informa informa informa 2010 SOURCE VICAL tion in tion in tion in tion in 3:12 PM source source source source data data data data PREGNAN NO No No No No May 21 T informa informa informa informa 2011 tion in tion in tion in tion in 3:12 PM source source source source data data data data CHART NA No No No No May 21 NUMBER informa informa informa informa 2011 tion in tion in tion in tion in 3:12 PM source source source source data data data data Chlamyd Pending No No No No May 21 ia informa informa informa informa 2011 trachom tion in tion in tion in tion in 3:12 PM atis source source source source rRNA data data data data [Presen ce] in Unspeci fied specime n by Probe & target amplifi cation method Neisser Pending No No No \.br\May 21 ia informa informa informa is 2011 gonorrh tion in tion in tion in report 3:12 PM oeae source source source contain rRNA data data data s [Presen patient ce] in Unspeci informa fied tion specime that n by must be Probe & target protect ed in amplifi accorda cation nce method with the Health Insuran ce Portabi lity and Account ability Act.
--- OUTSIDE RECORDS SUMMARY | 2017-04-28 12:39 | External Medical Summary Rpt ---
[...] rRNA data data [Presen Librado ce] in [id number] Unspeci [place] fied [place], specime [place]ibr[place], [place] Probe & target [id number] 38Lab amplifi Directo cation r: method Elizabeth Zambrano MD, Phone: [phone] Comprehensive metabolic 2000 panel in Serum or [...]
--- OUTSIDE RECORDS SUMMARY | 2017-04-28 12:39 | External Medical Summary Rpt | CCD ---
Demographics Preferred Language Welsh Marital Status Unknown Yazidi Affiliation Unknown Race Unknown Ethnic Group Unknown Author Author , [facility] Address Unknown Phone Immunization No patient found.
[2017-04-28 12:41] LABS: HEMOGLOBIN 14.2 g/dL (12.2-16.2); LYMPH # 1.9 K/mm3 (0.7-4.5); LYMPH % 45.8 % (10-50.0)
--- NOTE | 2017-04-28 12:54 | Emergency Room Report ---
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 N Clinical Suspician of Infection? N Mental Status: 1 - Regular (Normal Baseline) Sepsis Risk:Low Sepsis Risk Have you (or family members/close friends) recently traveled outside the [place]? N If Yes, where/when: Have you had exposure to infectious disease within the past month? TB? Other? Specify: Patient forgot to take her Bisoprolol last night, and drank energy drink called "Spark", which contains 120 mg of caffeine. She acutely had an episode of palpitations, and felt unwell. She at breakfast today. She states she has a hx of tachycardia, followed by Dr. Anguiano. She has had her TSH checked in the recent past and was normal per her recollection. She has no chest pain. No syncope. Has ear fullness, worse when changing positions. Takes allergy medicine for this. No complaints of palpitations on MD arrival in room. Has been fatigued lately with some waeight gain over the past year; no skin or hair changes. ALLERGIES Coded Allergies: No Known Drug Allergies (04/28/17) Home Medications Reported Medications Montelukast Sodium (Singulair) Loratadine (Claritin) AZELASTINE/FLUTICASONE (Dymista Nasal [place]) BISOPROLOL FUMARATE (Bisoprolol 5MG) Fluoxetine Hcl (Fluoxetine) History Medical History General Angina: No CO: No Hypertension? No Hyperlipidemia? No CHF? No DVT? No PE? No COPD? No Asthma? No Anemia? No GERD? Yes Gastric ulcers? No GI Bleed? No Hernia? No Thyroid Problems? No Hypothyroidism? No CVA? No Seizures? No Diabetes? No UTI? No Stones? No GB Disease: No Hepatitis? No Cataracts? No Glaucoma? No MRSA? No TB? No Cancer? 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 Cardiovascular see HPI Physical Exam Vital Signs Vital Signs Date Time Temp Pulse Resp B/P Pulse O2 O2 Flow FiO2 Ox Delivery Rate 04/28 1355 70 20 127/78 98 04/28 1213 97.0 100 18 127/78 100 General Appearance normal appearance, WD/WN, no apparent distress Eye Exam - bilateral eye normal exam Ear, Nose, Throat abnormal TM (R), abnormal TM (L) (cloudy B;minor irrit R canal ), OP wet; nares patent, no congestion Neck normal inspection, non-tender, supple (nl thyroid) Respiratory Status Yes: trachea midline, chest symmetrical, non tender chest. No: respiratory distress, tender on palpation, use of accessory muscles, pain on inspiration, pain on expiration, productive cough, non productive cough. Lung Sounds bilateral: normal breath sounds, lungs clear. Cardiovascular normal exam, regular rate/rhythm, no peripheral edema, no gallop, no JVD, no murmur, no rub, normal peripheral pulses (HR 80), JVD (HR 80's) Peripheral Pulses Pulses normal Yes Gastrointestinal normal bowel sounds, normal exam, non tender, soft, no organomegaly, no pulsatile mass, no guarding, no rebound Extremities normal range of motion Strength 5 Upper Ext (L), 5 Upper Ext (R), 5 Lower Ext (L), 5 Lower Ext (R) Neurologic alert (nonfocal;speech clear;ambulato) Glascow Coma Scale Glascow Coma Scale Response Value EYE response: 4 Spontaneously 4 MOTOR response: 6 OBEYS 6 VERBAL response: 5 Oriented & Converses 5 Total 15 Skin intact, normal color, warm/dry Medical Decision Making LABS/Meds/Orders Pt receiving controlled substance in ED? No Results/Orders Laboratory Tests 04/28/17 1230: Sodium 139, Potassium 3.2 L, Chloride 102, Carbon Dioxide 30, BUN 17, Creatinine 0.6, Estimated Creat Clear 122, Estimated GFR (MDRD) 112, Glucose 95, Calcium 8.6, Total Bilirubin 0.4, AST 20, ALT 21, Alkaline Phosphatase 83, Creatine Kinase 99, CK-MB (CK-2) Rel Index 1.0, CK and CKMB Interp 1.0, Troponin I < 0.02, Total Protein 7.9, Albumin 4.1, Globulin 3.8 H, Albumin/Globulin Ratio 1.1, TSH 5.23 H, Free T4 Index 6.4, Thyroxine (T4) 7.8, T3 Uptake 33, WBC 4.1 L, RBC 4.73, Hgb 14.2, Hct 42.9, MCV 90.6, RDW 11.9, Plt Count 158, MPV 9.2 , Gran % 45.7, Gran # 1.9, Lymphocytes % 45.8, Monocytes % 6.2, Eosinophils % 2.0, Basophils % 0.4, Lymphocytes # 1.9, Monocytes # 0.3, Eosinophils # 0.1, Basophils # 0.0, PUBS MCHC 33.1, MCH 30.0 Current Medication Orders Sig/Zulay Start time Last Medication Dose Route Stop Time Status Admin Sodium Chloride 10 ML PRN PRN 04/28 1230 AC IV 04/29 1218 Orders Procedure Date/time Status ELECTROCARDIOGRAM REQUEST 04/28 1219 Active CHEST(2 VIEWS-NOT PORTABLE) 04/28 1219 Active IV SALINE LOCK 04/28 1219 Active THYROID PANEL 2 (WITH TSH) 04/28 1219 Complete CBC WITH AUTO DIFF 04/28 1219 Complete CARDIAC ENZYMES 04/28 1219 Complete CHEM 12 PROFILE 04/28 1219 Complete 12 LEAD EKG-[facility] (INITIAL) 04/28 UNK Active CM/EKG CM/EKG EKG rate, NSR, rhythm, no evid. of ischemic chgs, no ectopy, normal QRS, normal NH, normal EKG (NSR 88) XRAY/CT/US XRAY/CT/US XRAY chest XR interpretation by reviewed by me Xray Results normal/NAD, no infiltrates, normal heart size, no hematoma seen, normal lung inflation spencer Departure Departure Time of Disposition 1401 Disposition DC Home or Self Care(routine) Clinical Impression Primary Impression: Palpitations Secondary Impressions: Elevated TSH Condition STABLE Referrals Adonay MATOS,Carol Erwin (PCP/Family) Patient Instructions DI for Palpitations Additional Instructions See Dr. Urias regarding elevated TSH. This may be related to your palpitations, fatigue, and weight gaine. See Dr. Anguiano regarding Bisoprolol and history of tachycardia, as he may wish to do further testing outpatient as well. continue current medications and avoid caffeine. Discharge Counseling Counseled pt/family regarding diagnosis, test results, medications/RX, home care, follow up needs ED Critical Care Critical Care No at [id number]
[2017-04-28 13:03] LABS: BUN 17 mg/dL (7-18); FREE THYROXIN INDEX 6.4 ug/dl (5.93-13.13)
[2017-04-28 13:09] LABS: GFR (ESTIMATED) 112 ML/MIN (59-)
[2017-04-28 14:12] VITALS: BP 127/78
--- NOTE | 2017-04-28 21:22 | RADIOLOGY REPORT PS360 ---
CHEST(2 VIEWS-NOT PORTABLE) Ordering physician: Radha Garcia MD Age: 36 years Female INDICATION: chest symptomsHEART PALPITATIONS heart palpitations PROCEDURE: CHEST(2 VIEWS-NOT PORTABLE) FINDINGS: March 2012 CXR as comparison. Lungs are mildly hyperexpanded on this study but clear with nothing definitely acute. The mild accentuation of markings at the infrahilar region on right measuring suspect reflects an early mild chronic changes and accentuated by today's technique. Nipple shadow is seen on the left more so than right base unchanged since prior study. Heart, dolores and mediastinal structures stable. No pneumothorax. No pleural effusion. Heart normal size. Normal pulmonary vascularity. Hilar and mediastinal structures appear satisfactory. Chest wall unremarkable. T-spine intact. IMPRESSION ----- Stable chest nothing definitely acute Mild hyperexpansion COPDWith suggestion early mild chronic changes
== END 2017-04-28 14:12 | disposition home or self-care (01) ==
LOC: ER 12:12
PROVIDERS: Emergency Medicine
DX: R00.2 Palpitations (principal); K21.9 Gastro-esophageal reflux disease without esophagitis; R94.6 Abnormal results of thyroid function studies

== ENCOUNTER → 2017-05-01 | Outpatient (CLI) | payer OTHER ==
[~2017-05-01] MED LIST changes: +LEVOTHYROXIN0.025 MG
--- NOTE | 2017-05-01 15:56 | RADIOLOGY REPORT PS360 ---
US THYROID HISTORY: HYPOTHYROIDISM, thyromegaly ORDERING PHYSICIAN: Carol Urias MD PATIENT AGE: 36 years COMPARISON: 02/23/2015 FINDINGS: Right lobe: 4.1 x 1.2 x 1.5 cm Left lobe: 4 x 1.1 x 0.7 cm Isthmus: 3 mm Homogeneous echogenicity is present. No thyroid nodules IMPRESSION: Unremarkable thyroid ultrasound
== END ==
LOC: RAD 09:57
DX: E03.9 Hypothyroidism, unspecified (principal)

== ENCOUNTER → 2017-06-12 | Outpatient (CLI) | payer OTHER ==
[2017-06-12 17:45] LABS: BUN 16 mg/dL (7-18)
[2017-06-12 18:03] LABS: GFR (ESTIMATED) 80 ML/MIN (59-)
== END ==
LOC: LAB 14:37
PROVIDERS: Family Medicine
DX: E03.9 Hypothyroidism, unspecified (principal); E87.6 Hypokalemia